=== PATIENT | male | born 1990 | race Caucasian/White ===

== ENCOUNTER 2022-12-01 14:26 | Emergency (ER) | payer OTHER ==
[2022-12-01 14:43] VITALS: BP 143/89; PULSE 86; RESP 20; TEMP 98.6; BMI 27.9
[2022-12-01] MEDS ORDERED: KETOROLAC TROMETHAMINE 30 MG/1 ML VIAL IM ONE (15:14)
[2022-12-01] MEDS ORDERED: KETOROLAC TROMETHAMINE 30 MG/1 ML VIAL ONE (15:28)
== END 2022-12-01 16:08 | disposition home or self-care (01) ==
LOC: JER 14:26 → JERFT 14:26
PROC: 3E023GC Introduction of Other Therapeutic Substance into Muscle, Percutaneous Approach (ICD-10-PCS; principal; 2022-12-01)
DX: S90.111A Contusion of right great toe without damage to nail, initial encounter (principal); W22.8XXA Striking against or struck by other objects, initial encounter
CPT/HCPCS: 73630-TC-RT-FY; 99284-25

== ENCOUNTER 2022-12-04 11:15 | Emergency (ER) | payer OTHER ==
[2022-12-04 11:22] VITALS: BP 128/91; PULSE 91; RESP 18; TEMP 98.6; BMI 27.9
== END 2022-12-04 12:32 | disposition home or self-care (01) ==
LOC: JERFT 11:15 → JER 11:15 → JERFT 12:32
DX: M79.674 Pain in right toe(s) (principal)
CPT/HCPCS: 73630-TC-RT-FY; 99283-25